=== PATIENT | male | born 1970 | race Two or more races ===

== ENCOUNTER 2025-08-15 15:46 | Emergency (ER) | payer BC ==
[~2025-08-15] VITALS: Ht 180.3 cm; Wt 77.3 kg
[2025-08-15 15:49] VITALS: TEMP 98.1
[2025-08-15] MEDS ORDERED: BICT1TAB PO (15:57)
[2025-08-15 16:07] LABS: COVID AG,FIA SOURCE NASAL SWAB
[2025-08-15 16:26] LABS: INFLUENZA TYPE A NEGATIVE FOR TYPE A (NEGATIVE); INFLUENZA TYPE B NEGATIVE FOR TYPE B (NEGATIVE); SARS-COV2 (COVID) ANTIGEN,FIA Negative (Negative)
[2025-08-15 16:28] LABS: PLATELET COUNT (AUTO) 249 K/uL (150-450); RED BLOOD CELL COUNT(AUTO) 4.78 MIL/uL (4.50-5.90); RED CELL DISTRIBUTION WIDTH 14.8 % (11.5-14.5); WHITE BLOOD COUNT (AUTO) 6.8 K/uL (4.5-11.0)
[2025-08-15 16:40] LABS: CALCIUM, TOTAL 9.1 mg/dL (8.8-10.5); CREATININE 0.96 mg/dL (0.60-1.30); GLOMERULAR FILTR. RATE CALC > 60 mL/min (>60); GLUCOSE,RANDOM 94 mg/dL (70-110); SODIUM SERUM 141 mmol/L (136-145); UREA NITROGEN, BLOOD 22 mg/dL (7-18)
[2025-08-15 18:40] VITALS: BP 115/85; PULSE 73; RESP 18; O2SAT 96
[2025-08-16 11:07] LABS: RPR QUANT. (TITER) 1:1 titer (NonRea<1:1)
[2025-08-16 18:07] LABS: TREPONEMA PALLIDUM AB -TPPA Reactive (Non Reactive)
== END 2025-08-15 18:59 | disposition home or self-care (01) ==
LOC: EMS 15:46
DX: J18.0 Bronchopneumonia, unspecified organism (principal); A53.9 Syphilis, unspecified; Z86.19 Personal history of other infectious and parasitic diseases; Z90.49 Acquired absence of other specified parts of digestive tract; Z79.899 Other long term (current) drug therapy; Z20.822 Contact with and (suspected) exposure to COVID-19
CPT/HCPCS: 71045; 80048; 85025; 86592; 86593; 86780; 87804; 99284; 36415-L1; 36415-TC